=== PATIENT | male | born 1985 | race Caucasian/White ===

== ENCOUNTER 2022-03-18 12:19 | Outpatient (CLI) | payer OTHER, SELFPAY ==
[2022-03-18 12:19] LABS: Abs Immature Grans 0.02 10^3/uL (0.0-0.06); Absolute Basophil Count 0.01 10^3/uL (0.0-0.2); Absolute Eosinophil Count 0.01 10^3/uL (0.0-0.7); Absolute Lymphocyte Count 0.55 10^3/uL (1.2-3.4); Absolute Neutrophil Count 7.57 10^3/uL (1.2-6.7); Basophils % 0.1; Eosinophils % 0.1; HCT 49.4 % (40.0-50.0); Immature Grans % 0.2; Lymphocytes % 6.5; MCH 34.5 pg (27.0-33.0); MCHC 34.4 % (32.0-36.0); MCV 100 fL (80-95); MPV 9.5 fL (8.0-11.0); Monocytes % 3.5; Neutrophils % 89.6; Platelet Count 174 10^3/uL (130-400); RBC 4.93 10^6/uL (4.36-5.78); RDW 11.7 % (11.8-14.1); RDW-SD 42.9 fL; WBC 8.46 10^3/uL (4.4-10.8)
[2022-03-18 12:39] LABS: ALT 43 U/L (16-63); AST 13 U/L (15-37); Albumin 3.7 g/dL (3.4-5.0); Alkaline Phosphatase 66 U/L (46-116); BUN 23 mg/dL (7-18); Bilirubin, Total 0.4 mg/dL (0.2-1.0); CREATININE 0.9 mg/dL (0.70-1.30); Calcium 9.3 mg/dL (8.5-10.1); Chloride 103 mmol/L (98-107); Estimated GFR 113.51 (mL/min/1.73m2); Glucose 104 mg/dL (74-106); Potassium 3.6 mmol/L (3.5-5.1); Sodium 138 mmol/L (136-145); Total Protein 7.4 g/dL (6.4-8.2)
[2022-03-18 12:46] LABS: Bilirubin Negative (Negative); Blood Negative (Negative); Clarity Clear (Clear); Glucose Negative (Negative); Ketones Negative (Negative); Leukocyte Esterase Negative (Negative); Nitrite Negative (Negative); Specific Gravity >= 1.030 (1.005-1.025); Urobilinogen 0.2 EU/dL (Up TO 0.2)
== END 2022-03-18 12:20 | disposition home or self-care (01) ==
PROVIDERS: PCP Internal Medicine Hematology & Oncology; Visit Provider Internal Medicine
DX: C71.9 Malignant neoplasm of brain, unspecified (principal); D70.1 Agranulocytosis secondary to cancer chemotherapy; T45.1X5A Adverse effect of antineoplastic and immunosuppressive drugs, initial encounter
CPT/HCPCS: 36415; 80053; 81003; 85025

== ENCOUNTER 2022-04-01 03:24 | Outpatient (CLI) | payer OTHER, SELFPAY ==
[2022-04-01 09:04] LABS: Abs Immature Grans 0.03 10^3/uL (0.0-0.06); Absolute Basophil Count 0.03 10^3/uL (0.0-0.2); Absolute Eosinophil Count 0.01 10^3/uL (0.0-0.7); Absolute Lymphocyte Count 0.61 10^3/uL (1.2-3.4); Absolute Monocyte Count 0.48 10^3/uL (0.1-0.8); Absolute Neutrophil Count 8.96 10^3/uL (1.2-6.7); Basophils % 0.3; Eosinophils % 0.1; HCT 48.9 % (40.0-50.0); HGB 16.7 g/dL (13.5-17.5); Immature Grans % 0.3; MCH 34.4 pg (27.0-33.0); MCHC 34.2 % (32.0-36.0); MCV 101 fL (80-95); MPV 9.9 fL (8.0-11.0); Monocytes % 4.7; Neutrophils % 88.6; Platelet Count 143 10^3/uL (130-400); RBC 4.85 10^6/uL (4.36-5.78); RDW 12.5 % (11.8-14.1); RDW-SD 45.8 fL; WBC 10.12 10^3/uL (4.4-10.8)
[2022-04-01 09:06] LABS: Bilirubin Negative (Negative); Blood Negative (Negative); Clarity Clear (Clear); Glucose Negative (Negative); Ketones Negative (Negative); Leukocyte Esterase Negative (Negative); Nitrite Negative (Negative); Specific Gravity >= 1.030 (1.005-1.025); Urobilinogen 0.2 EU/dL (Up TO 0.2)
[2022-04-01 09:20] LABS: ALT 42 U/L (16-63); AST 11 U/L (15-37); Albumin 3.7 g/dL (3.4-5.0); Alkaline Phosphatase 111 U/L (46-116); Anion Gap 7.4 mmol/L (3-11); BUN 22 mg/dL (7-18); Bilirubin, Total 0.2 mg/dL (0.2-1.0); CO2 27.6 mmol/L (21.0-32.0); CREATININE 0.9 mg/dL (0.70-1.30); Calcium 9.2 mg/dL (8.5-10.1); Chloride 104 mmol/L (98-107); Estimated GFR 113.51 (mL/min/1.73m2); Glucose 88 mg/dL (74-106); Potassium 3.9 mmol/L (3.5-5.1); Sodium 139 mmol/L (136-145); Total Protein 7.5 g/dL (6.4-8.2)
== END 2022-04-01 03:25 | disposition home or self-care (01) ==
LOC: LBO 03:24
PROVIDERS: PCP Internal Medicine Hematology & Oncology; Visit Provider Internal Medicine
DX: C71.9 Malignant neoplasm of brain, unspecified (principal); D70.1 Agranulocytosis secondary to cancer chemotherapy; T45.1X5A Adverse effect of antineoplastic and immunosuppressive drugs, initial encounter
CPT/HCPCS: 36415; 80053; 81003; 85025